=== PATIENT | female | born 1995 ===

== ENCOUNTER 2024-12-24 13:10 | Outpatient (BNV) | payer MEDICAID, SELFPAY | END 2024-12-26 08:00 | PROVIDERS: Admitting Provider Psychiatry & Neurology Psychiatry; Visit Provider Radiology Diagnostic Radiology | DX: M79.672 Pain in left foot (principal); S82.62XA Displaced fracture of lateral malleolus of left fibula, initial encounter for closed fracture | CPT/HCPCS: 73610; 73630 ==

== ENCOUNTER 2024-12-24 13:10 | Inpatient (IN) | payer MEDICAID, SELFPAY ==
--- NOTE | ~2024-12-24 | XR_ITS ---
EXAMINATION: XR FOOT, LEFT CLINICAL INFORMATION: left malleolus Fx, approx one month ago COMPARISON: Correlated to left ankle x-ray same day. TECHNIQUE: AP, lateral, and oblique views of the left foot. FINDINGS: The metatarsals are intact. The phalanges of the toes are intact. The calcaneus is intact. The tarsal bones are intact. Acute fracture distal metaphysis of the fibula with a small avulsion fracture fragment. XR/XR foot LT min 3V IMPRESSION: No acute fracture in the left foot. Acute fracture distal metaphysis of the right fibula with small avulsion fragment. Please refer to the ankle x-ray. Electronically signed by: Mike Senior MD 12/26/2024 09:08 AM ABHINAV MARROQUIN
--- NOTE | ~2024-12-24 | XR_ITS ---
EXAMINATION: XR ANKLE, LEFT CLINICAL INFORMATION: L lateral mal fx COMPARISON: None available. TECHNIQUE: AP, lateral, and mortise views of the left ankle. FINDINGS: There is a transversely oriented cortical disruption through the distal metaphysis of the fibula with small bone fragment in the soft tissues and a soft tissue contusion/edema, lateral malleolus. There is a 5 mm widening of the medial tibiotarsal joint space. Small volume anterior to the tarsal bursa joint effusion. XR/XR ankle LT min 3V IMPRESSION: Acute fracture distal metaphysis of the femur level with a lateral avulsion subluxation of the medial tibia tarsal joint. Electronically signed by: Mike Senior MD 12/26/2024 09:05 AM ABHINAV MARROQUIN
[2024-12-24 13:20] VITALS: BP 116/58; PULSE 90; RESP 18; TEMP 37.1; O2SAT 100
[2024-12-24 13:48] VITALS: BMI 32.5
--- OUTSIDE RECORDS SUMMARY | 2024-12-24 14:17 | XMS_ITS | Clinical Summary ---
Author Organization [facility] Address [address] [place] [address] Phone Care Team Providers Care [employer] Name Role Phone Physician, No Pcp Primary Care Provider Unavaila ble Allergies No known active allergies Medications melatonin 3 mg tablet 1 tablet (3 mg total). Active traZODone (DESYREL) 50 mg tabletIndicatio ns:insomnia associated with depression Take 1 tablet (50 mg total) by mouth at bedtime. Active hydrOXYzine HCL (ATARAX) 50 mg tablet Take 1 tablet (50 mg total) by mouth every 4 (four) hours if needed for anxiety. Active LORazepam (ATIVAN) 0.5 mg tablet Take 1 tablet (0.5 mg total) by mouth every 6 (six) hours if needed for anxiety. Max Daily Amount: 2 mg Active prazosin (MINIPRESS) 1 mg capsule Take 1 capsule (1 mg total) by mouth at bedtime. Active acetaminophen (TYLENOL) 500 mg tablet Take 1 tablet (500 mg total) by mouth every 6 (six) hours if needed for mild pain. Active ibuprofen (ADVIL,MOTRIN) 200 mg tablet Take 1 tablet (200 mg total) by mouth every 6 (six) hours if needed for mild pain. Active FLUoxetine (PROzac) 10 mg capsule Take 3 capsules (30 mg total) by mouth 1 (one) time each day. Active ARIPiprazole (ABILIFY) 2 mg tablet Take 1 tablet (2 mg total) by mouth at bedtime. 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) Discharge Disposition: Another Health Care Institution Not Defined from Last 3 Months Medical History Medical History Date Comments PTSD (post-traumatic stress disorder) per emr 08/2024 Pulmonary embolism ([facility]) per EMR, hypercoagulable, control use, no longer on eliquis per EMR DVT (deep venous thrombosis) ([facility]) per EMR Anxiety per EMR Depression per EMR Social History Tobacco Use Types Packs/Day Years Used Date Smoking Tobacco: Every Day Cigarettes Smokeless Tobacco: Never Tobacco Cessation:Ready to Q uit: Not Asked; Counseling Given: Not Answered Comments Unknown Sex and Gender Information Value Date Recorded Sex Assigned at Female 12/19/2024 12:44 PM EST Legal Sex Female 11:46 AM EST Gender Identity Female 12/19/2024 12:44 PM EST Sexual Orientation Not on file Obstetrics History Last Filed Vital Signs Vital Sign Reading Time Taken Comments Blood Pressure 114/69 12/24/2024 6:52 AM EST Pulse 88 12/24/2024 6:52 AM EST Temperature 37 ??C (98.6 ??F) 12/24/2024 6:52 AM EST Respiratory Rate 17 12/24/2024 6:52 AM EST Oxygen Saturation 98% 12/24/2024 6:52 AM EST Inhaled Oxygen Concentration - - Weight 113 kg (250 lb) 12/19/2024 5:52 PM EST Height 175.3 cm (5' 9 ) 12/19/2024 5:52 PM EST Body Mass Index 36.92 12/19/2024 5:52 PM EST Plan of Treatment Health Maintenance Due Date Last Done Comments DTaP,Tdap,and Td Vaccines (4 - Td or Tdap) 2003 02/22/2017, 08/03/2007, 06/26/2000, Additional history exists Pneumococcal Vaccine: Pediatrics (0 to 5 Years) and At-Risk Patients (6 to 64 Years) (1 of 2 - PCV) 2015 COVID-19 Vaccine ( season) 2024 Influenza Vaccine (#1) 2024 , 08/21/2019, 08/22/2018, Additional history exists Cervical Cancer Screening: Pap Smear 10/28/2024 10/28/2021 Cholesterol Screening (Lipid Panel) 12/19/2024 Depression Screening 12/19/2024 HIV Screening 12/19/2024 Hepatitis C Screening 12/19/2024 Social Influencers of Health Screening 12/19/2024 HIB Vaccines Completed 10/06/1997, /0 03/1997, 1996, Additional history exists Hepatitis A Vaccines Completed 06/26/2000, 10/11/19 99 IPV Vaccines Completed 06/26/2000, 09/14, 1996, Additional history exists MMR Vaccines Completed 06/26/2000, 1996 Hepatitis B Vaccines Completed 08/09/2000, 03/31/2000, 10/11/1999 Meningococcal ACWY Vaccine Completed 10/21/2013, HPV Vaccines Completed 08/04/2015, 03/13, 01/21/2015 Meningococcal B Vacine Aged Out No lo nger eligible based on patient's age to complete this topic RSV Immunization Patients Under 20 months Aged Out No longer eligible based on patient's age to complete this topic Varicella Vaccines Aged Out No longer eligible based on patient's age to complete this topic Procedures Procedure Name Priority Date/Time Associated Diagnosis Comments POC , URINE DIAGNOSTIC STAT 12/19/2024 2:54 PM EST METHADONE SCREEN, URINE STAT 12/19/2024 2:44 PM EST PHENCYCLIDINE, URINE STAT 12/19/2024 2:44 PM EST BUPRENORPHINE SCREEN, URINE STAT 12/19/2024 2:44 PM EST DRUG ABUSE SCREEN 8A PANEL, URINE STAT 12/19/2024 2:44 PM EST XR FOOT 3+ VIEWS LEFT STAT 12/19/2024 1:32 PM EST XR ANKLE 3+ VIEWS LEFT STAT 5 1:32 PM EST from Last 3 Months Results * POC , urine manually resulted (12/19/2024 2:54 PM EST) HCG, Ur POC Negative Negative POC hCG Int QC Pass? Yes Yes Urine Urine specimen obtained by clean catch procedure / Unknown 12/19/2024 2:54 PM EST Alessio Lyon DO POINT OF CARE TEST ENTER/EDIT ORDERABLES Final Result * (ABNORMAL) Drug abuse screen 8a panel, urine (12/19/2024 2:44 PM EST) Pathologist [facility] [place] Amphetamine Screen, Ur Negative Negative LAB CHEMISTRY METHOD 5 3:38 PM [facility] Comment:Certain OTC medicati ons containing ephedrine, phenylephrine, pseudoephedrine and phenylpropanolamine can cause false positive results. Barbiturate Screen, Ur Negative Negative LAB CHEMISTRY METHOD 5 3:38 PM [facility] Benzodiazepine Screen, Ur Negative Negative LAB CHEMISTRY METHOD 5 3:38 PM [facility] Cocaine Screen, Ur Negative Negative LAB CHEMISTRY METHOD 5 3:38 PM [facility] Opiate Screen, Ur Negative Negative LAB CHEMISTRY METHOD 5 3:38 PM [facility] Cannabinoid (THC) Screen, Ur Positive(A ) Negative LAB CHEMISTRY METHOD 5 3:38 PM [facility] Comment:Specimens from patie nts taking pantoprazole sodium (Protonix) have been shown to produce false positive results. Oxycodone Screen, Ur Negative Negative LAB CHEMISTRY METHOD 5 3:38 PM [facility] Fentanyl, Ur Negative Negative LAB CHEMISTRY METHOD 5 3:38 PM [facility] Urine Urine specimen obtained by clean catch procedure / Unknown Non-blood Collection / Unknown 12/19/2024 2:44 PM EST 12/19/2024 3:05 PM EST Narrative [facility] - 12/19/2024 3:38 PM EST Assay cutoffs: Amphetamines ? 1000 ng/mL Barbiturates ?200 ng/mL Benzodiazepines ?? 200 ng/mL Cocaine ? 300 ng/mL Fentanyl ?1 ng/mL Opiates ? 300 ng/mL Oxycodone ? 100 ng/mL THC ?50 ng/mL Semi-quantitative assay for screening purposes only. Unconfirmed screening result should not be used for non-medical purposes. *ALTERNATE METHOD CONFIRMATION DONE UPON REQUEST ONLY* Alessio Lyon DO LAB URINE ORDERABLES Final Res ult Performing Organization Address [facility] de Phone Number [facility] [address] [place] [address], [place] [phone] * Buprenorphine screen, urine (12/19/2024 2:44 PM EST) Pathologist [facility] [place] Buprenorphine Screen Urine Negative Negative LAB CHEMISTRY METHOD 12/19/2024 3:38 PM EST [facility] Urine Urine specimen obtained by clean catch procedure / Unknown Non-blood Collection / Unknown 12/19/2024 2:44 PM EST 12/19/2024 3:05 PM EST Narrative [facility] - 12/19/2024 3:38 PM EST Assay cutoff 5 ng/mL Semi-quantitative assay for screening purposes only. Unconfirmed screening result should not be used for non-medical purposes. *ALTERNATE METHOD CONFIRMATION DONE UPON REQUEST ONLY* Alessio Lyon DO LAB URINE ORDERABLES Final Res ult Performing Organization Address [facility] Co de Phone Number [facility] [address] [place] [address], [place] [phone] * Methadone, urine (12/19/2024 2:44 PM EST) Methadone Screen, Urine Negative Negative LAB CHEMISTRY METHOD 12/19/2024 3:38 PM EST [facility] Comment: Assay cutoff 300 ng/mL Semi-quantitative assay for screening purposes only. Unconfirmed screening result should not be used for non-medical purposes. *ALTERNATE METHOD CONFIRMATION DONE UPON REQUEST ONLY* Urine Urine specimen obtained by clean catch procedure / Unknown Non-blood Collection / Unknown 12/19/2024 2:44 PM EST 12/19/2024 3:05 PM EST us Alessio Lyon DO LAB URINE ORDERABLES Final Res ult Performing Organization Address [facility]/ZIP Co de Phone Number [facility] [address] [place] [address], [place] [phone] * Phencyclidine, urine (12/19/2024 2:44 PM EST) PCP Scrn, Ur Negative Negative LAB CHEMISTRY METHOD 12/19/2024 3:44 PM EST [facility] Comment: Assay cutoff 25 ng/mL Semi-quantitative assay for screening purposes only. Unconfirmed screening result should not be used for non-medical purposes. *ALTERNATE METHOD CONFIRMATION DONE UPON REQUEST ONLY* Urine Urine specimen obtained by clean catch procedure / Unknown Non-blood Collection / Unknown 12/19/2024 2:44 PM EST 12/19/2024 3:05 PM EST us Alessio Lyon DO LAB URINE ORDERABLES Final Res ult Performing Organization Address [facility]/ZIP Co de Phone Number [facility] [address] [place] [address], [place] [phone] * XR Foot 3+ Views Left (12/19/2024 1:32 PM EST) Anatomical Region Laterality Modality Lower Extremities, Foot Left Radiogra phic Imaging 12/19/2024 1:57 PM EST Impressions 12/19/2024 1:58 PM EST FINDINGS/IMPRESSION: No foot fracture. ??Normal alignment. ??Distal fibular fracture better visualized on the accompanying ankle films. -------- FINAL REPORT -------- Dictated By: Nina Luis Dictated Date: 12/19/2024 13:57 ET Assigned Physician: Nina Luis Reviewed and Electronically Signed By: Nina Luis Signed Date: 12/19/2024 13:58 ET Workstation ID: [id number] Transcribed By: Self Edit Transcribed Date: 12/19/2024 13:57 ET Narrative 12/19/2024 1:58 PM EST XR FOOT 3+ VIEWS LEFT INDICATION: trauma, pain TECHNIQUE: XR FOOT 3+ VIEWS LEFT COMPARISON: No priors available. Procedure Note Nina Luis MD - 12/19/2024 XR FOOT 3+ VIEWS LEFT INDICATION: trauma, pain TECHNIQUE: XR FOOT 3+ VIEWS LEFT COMPARISON: No priors available. IMPRESSION: FINDINGS/IMPRESSION: No foot fracture. Normal alignment. Distal fibularfracture better visualized on the accompanying ankle films. -------- FINAL REPORT -------- Dictated By: Nina Luis Dictated Date: 12/19/2024 13:57 ET Assigned Physician: Nina Luis Reviewed and Electronically Signed By: Nina Luis Signed Date: 12/19/2024 13:58 ET Workstation ID: [id number] Transcribed By: Self Edit Transcribed Date: 12/19/2024 13:57 ET us Alessio Lyon DO IMG XR PROCEDURES Final Result * XR Ankle 3+ Views Left (12/19/2024 1:32 PM EST) Anatomical Region Laterality Modality Lower Extremities, Ankle Left Radiogr aphic Imaging 12/19/2024 1:55 PM EST Impressions 12/19/2024 1:57 PM EST FINDINGS/IMPRESSION: There is an incompletely healed transverse fracture through the lateral malleolus with small adjacent fracture fragment. ??No significant displacement of the large fracture fragment. ??Prominent soft tissue swelling. -------- FINAL REPORT -------- Dictated By: Nina Luis Dictated Date: 12/19/2024 13:55 ET Assigned Physician: Nina Luis Reviewed and Electronically Signed By: Nina Luis Signed Date: 12/19/2024 13:57 ET Workstation ID: [id number] Transcribed By: Self Edit Transcribed Date: 12/19/2024 13:55 ET Narrative 12/19/2024 1:57 PM EST XR ANKLE 3+ VIEWS LEFT INDICATION: Injury of muscle and tendon at ankle and foot level TECHNIQUE: XR ANKLE 3+ VIEWS LEFT COMPARISON: No priors available. Procedure Note Nina Luis MD - 12/19/2024 XR ANKLE 3+ VIEWS LEFT INDICATION: Injury of muscle and tendon at ankle and foot level TECHNIQUE: XR ANKLE 3+ VIEWS LEFT COMPARISON: No priors available. IMPRESSION: FINDINGS/IMPRESSION: There is an incompletely healed transverse fracturethrough the lateral malleolus with small adjacent fracture fragment. Nosignificant displacement of the large fracture fragment. Prominent softtissue swelling. -------- FINAL REPORT -------- Dictated By: Nina Luis Dictated Date: 12/19/2024 13:55 ET Assigned Physician: Nina Luis Reviewed and Electronically Signed By: Nina Luis Signed Date: 12/19/2024 13:57 ET Workstation ID: [id number] Transcribed By: Self Edit Transcribed Date: 12/19/2024 13:55 ET Alessio Lyon DO IMG XR PROCEDURES Final Result from Last 3 Months Insurance MEDICAID - [place] Care Teams [employer] Relationship Specialty Start Date End Date Physician, No Pcp PCP - General 12/19/24
--- OUTSIDE RECORDS SUMMARY | 2024-12-24 14:18 | XMS_ITS | Encounter Summary ---
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 Name Role Phone Physician, No Pcp Primary Care Provider Unavaila ble Reason for Visit * Reason Comments Leg Pain Encounter Details Date Type Department Care Team (Late st Contact Info) Description 12/19/2024 11:48 AM EST - 12/24/2024 12:50 PM EST [facility] [address] [place] [id number] Alessio Lyon, DO [address] [place] [address] Loni Bustamante MD [address] [place] [address] Isiah Licea MD [address] [address] Sugar Washburn, DO [address] [place] [address] Turner Simms MD [address] [place] [address] Derrick Martini MD [address] [place] [id number] Mohan Herring MD [address] [place] [address] Chuck York, DO [address] [place] [address] Atypical psychosis (CMS/HCC) (Primary Dx) Discharge Disposition: Another Health Care Institution Not Defined Social History Tobacco Use Types Packs/Day Years Used Date Smoking Tobacco: Every Day Cigarettes Smokeless Tobacco: Never Tobacco Cessation:Ready to Q uit: Not Asked; Counseling Given: Not Answered Comments Unknown Sex and Gender Information Value Date Recorded Sex Assigned at Female 12/19/2024 12:44 PM EST Legal Sex Female 11:46 AM EST Gender Identity Female 12/19/2024 12:44 PM EST Sexual Orientation Not on file documented as of this encounter Last Filed Vital Signs Vital Sign Reading [...] Mass Index 36.92 12/19/2024 5:52 PM EST documented in this encounter Functional Status * Are you deaf or do you have serious difficulty hearing? Answer Date of Assessment Author No 12/20/2024 4:24 AM EST Tunde Calderon RN * Are you blind or do you have serious difficulty seeing, even when wearing glasses? Answer Date of Assessment Author No 12/20/2024 4:24 AM Tunde Caputo RN * Do you have serious difficulty walking or climbing stairs? Answer Date of Assessment Author Yes 12/20/2024 4:24 AM Tunde Caputo RN * Do you have serious difficulty dressing or bathing? Answer Date of Assessment Author No 12/20/2024 4:24 AM Tunde Caputo RN * Because of a physical, mental, or emotional condition, do you have serious difficulty doing errandsalone such as visiting the doctor? Answer Date of Assessment Author Yes 12/20/2024 4:24 AM Tunde Caputo RN documented as of this encounter Mental Status * Because of a physical, mental, or emotional condition, do you have serious difficulty concentrating, remembering, or making decisions? (5 years old or older) Answer Entry Date Author Yes 12/20/2024 4:24 AM Tunde Caputo RN documented in this encounter Medications at Time of Discharge acetaminophen (TYLENOL) 500 mg tablet Take 1 tablet (500 mg total) by mouth every 6 (six) hours if needed for mild pain. ARIPiprazole (ABILIFY) 2 mg tablet Take 1 tablet (2 mg total) by mouth at bedtime. FLUoxetine (PROzac) 10 mg capsule Take 3 capsules (30 mg total) by mouth 1 (one) time each day. hydrOXYzine HCL (ATARAX) 50 mg tablet Take 1 tablet (50 mg total) by mouth every 4 (four) hours if needed for anxiety. ibuprofen (ADVIL,MOTRIN) 200 mg tablet Take 1 tablet (200 mg total) by mouth every 6 (six) hours if needed for mild pain. LORazepam (ATIVAN) 0.5 mg tablet Take 1 tablet (0.5 mg total) by mouth every 6 (six) hours if needed for anxiety. Max Daily Amount: 2 mg melatonin 3 mg tablet 1 tablet (3 mg total). prazosin (MINIPRESS) 1 mg capsule Take 1 capsule (1 mg total) by mouth at bedtime. traZODone (DESYREL) 50 mg tabletIndications :insomnia associated with depression Take 1 tablet (50 mg total) by mouth at bedtime. documented as of this encounter Discharge Disposition Disposition Code Departure Means Destination Comment s Another Health Care Institution Not Defined documented in this encounter Progress Notes * Berenice Gilman - 12/24/2024 10:11 AM EST Patient accepted to [facility], unit M3 by Dr Abundio Patricio, for today 12/24/24. Time will be determined during nurse to nurse. * Chuck York DO - 12/24/2024 7:49 AM EST ED Course as of 12/24/24 1236 Irina Dec 19, 2024 1509 Patient was found to have a partially healed left lateral malleolus fracture. Of note, patientreports that this injury happened approximately a month ago, and the patient has been walking on the left leg since the initial injury. No reported new acute injury. The left lower extremity is neurov ascularly intact. Given that the patient is an acute psychiatric patient is well, we will attempt to place an air cast on the left ankle as a temporary measure until she can be cleared by crisis. [KN] 1739 The patient was seen and evaluated by the crisis team who recommended that the patient go in for inpatient psychiatric care. The patient will continue to be observed in the ED until she has a psychiatric bed. Patient will be signed out to the nighttime provider this evening as a bed search. [KN] Fri Dec 20, 2024 0810 Patient seen on change of shift no acute issues this a.m. awaiting bed search [JL] 1518 Patient signed out to me pending bed search. [TC] 2220 Patient be signed out to oncoming provider pending placement and bed search. [TC] Sat Dec 21, 2024 1520 Pending bed search at this time [TC] 2318 Patient signed out to oncoming provider pending bed search. [TC] Sun Dec 22, 2024 0823 Received patient's signout pending bed search. She is asking for a ankle splint. [JL] 2336 Patient was in the corner of the room. Unable to see patient on camera. Attempted to redirect patient verbally. Patient became agitated. Patient was then given Haldol and Ativan IM. Patient was straining. Restraint was discontinued upon my evaluation. Patient appears to be calm and cooperative at this time. [TC] 2337 She is signed out to oncoming provider pending placement at this time. [TC] Mon Dec 23, 2024 0818 I received signout on this patient at change of shift and have assumed care. Patient is currently a bed search for . [TC-2] Tue Dec 24, 2024 0748 Received patient end of shift transfer care Housing insecurity Manic behavior, flight of ideas/word salad, evaluated by psych-bed search Fall months ago has been walking on left ankle fracture-Aircast applied [MC] 1236 Inpatient bed at [facility] [MC] ED Course User Index [JL] Isiah Licea MD [KN] Alessio Lyon DO [] Chuck York DO [TC] Franciscorhianna Polanco Mikey Washburn DO [TC-2] Mohan Herring MD Clinical Impressions as of 12/24/24 1236 Atypical psychosis (CMS/HCC) Transfer to Another Facility 1. Atypical psychosis (CMS/HCC) Procedures * Latasha Bryan RN - 12/22/2024 4:15 PM EST This RN took over care of the patient at 1500. Pt was pacing and agitated. Pt was in her room yelling at stimuli that were not present. Pt continued to make erratic hand gestures and to move the blanket, pillow and book around the room. Pt laid down on the floor in the corner of the room on the farside of the bed. Pt continued to make hand movement that this RN could not see. Lights in the room were turned on to better visualize patient movement, but still could not observe the patients face or hands from her position supine in the corner. I stepped into the room to try to ask the patient tomove onto her bed. The patient responded with you can go fuck yourself, I'm tired of the lies and games . This RN attempted to deescalate the patient for 15 minutes. The patient was offered books, television, food and drink and PRN medications is she would got onto the bed in order for staff to visualize her for her own safety. Pt continued to state, fuck you, you can get the fuck out . Provider made aware of patient behavior and safety risk of not being able to visualize patient movements. Pr ovider also aware of RN attempts to deescalate pt. Provider, MARCY Charles and security to bedside. Pt asked again to get onto the bed. Pt replied I should kill all of you and damn your souls . Pt administered 5mg Haldol, and 2 mg ativan IM and placed in four point restraints. Restraints were locked and checked for tightness. Latasha Bryan RN 12/22/24 1471 * Sugar Washburn DO - 12/22/2024 3:08 PM EST ED Course as of 12/22/24 2337 Irina Dec 19, 2024 1509 Patient was found to have a partially healed left lateral malleolus fracture. Of note, patientreports that this injury happened approximately a month ago, and the patient has been walking on the left leg since the initial injury. No reported new acute injury. The left lower extremity is neurov ascularly intact. Given that the patient is an acute psychiatric patient is well, we will attempt to place an air cast on the left ankle as a temporary measure until she can be cleared by crisis. [KN] 1739 The patient was seen and evaluated by the crisis team who recommended that the patient go in for inpatient psychiatric care. The patient will continue to be observed in the ED until she has a psychiatric bed. Patient will be signed out to the nighttime provider this evening as a bed search. [KN] Fri Dec 20, 2024 0810 Patient seen on change of shift no acute issues this a.m. awaiting bed search [JL] 1518 Patient signed out to me pending bed search. [TC] 2220 Patient be signed out to oncoming provider pending placement and bed search. [TC] Salvador Dec 21, 2024 1520 Pending bed search at this time [TC] 2318 Patient signed out to oncoming provider pending bed search. [TC] Farnaz Dec 22, 2024 0823 Received patient's signout pending bed search. She is asking for a ankle splint. [JL] 2336 Patient was in the corner of the room. Unable to see patient on camera. Attempted to redirect patient verbally. Patient became agitated. Patient was then given Haldol and Ativan IM. Patient was straining. Restraint was discontinued upon my evaluation. Patient appears to be calm and cooperative at this time. [TC] 2337 She is signed out to oncoming provider pending placement at this time. [TC] ED Course User Index [JL] Isiah Licea MD [KN] Alessio Lyon DO [TC] Sugar Washburn DO Clinical Impressions as of 12/22/24 2337 Atypical psychosis (CMS/HCC) Data Unavailable 1. Atypical psychosis (CMS/HCC) Procedures Ivy Lira * Mckenzie Berman RN - 12/22/2024 2:54 PM EST Pt continues to refuse vitals, telling RN to come back later . Pt sitting in bed making hand gestures, seems to be engaging in conversation or speaking to herself. At one point, pt yelled out aggressively and began crying. Now calm, but continues to speak to self. * Uma Lincoln NP - 12/22/2024 1:57 PM EST Psychiatry Initial Intake Ivy is a 29-year-old female reportedly [facility] complaining of bruising and pain in her right ankle and left foot and tailbone area after she reportedly had a fall about a month ago. She has been walking on the injured left extremity. Is some noted bruising and swelling to the left foot and ankle. No knee pain or fibular head tenderness. No hip pain or tenderness with range of motion. No other gross deformities. No head trauma or neck pain, neck stiffness or focal numbness or weakness. No trauma or injury reported. In addition, patient appears to have some paranoia and flight of ideas during my interview and exam, and ismixing multiple topics while trying to give a history. She does reportedly use marijuana and there is a possible history of opiate abuse in the past. She denies IVDU. There have been no reported fevers or recent illness. She denies any SI or HI. She denies any attempt to hurt herself. She does report that she is hearing voices, but would not specify what they are saying. No other acute complaints. On arrival Ivy reported there is a restraining order and check the court documents . She stated I am but it is complicated cause which and are you talking . She reported I every time I go to sleep . She reported sleep is no neccessary for me . She reported I cannot be in a high population area . Per EHR on 12/22/2024 Ivy's boyfriend stated he met her on tender in 10/06 and she was going through a divorce . He stated she was off her medications and she became very disorganized. 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 Her boyfriend stated she is from [place] and was living in [place] with her and daughter until thier divorce. He reported she went missing and he was looking for her for 2 days. He stated she had bought a plane ticket to [place]. He reported they noticed she was decompensated and sent her to [facility] for treatment. Her boyfriend stated when she got out she was still very decompensated. He reported she could not care for herself she was so decompensated. He stated he had to feed her. Her boyfriend stated she got aggressive with him and wasspiting at him. He reported he had to call the police and they sent her to the ER. Subjective 12/22/2024 I will look at you and fire you from here HPI: Ms Kathrine Lira sitting on bed eating lunch. Able to make needs known to staff. Showered yesterday. Current Medications: Scheduled Meds: nicotine, 1 patch, transdermal, Daily Continuous Infusions: PRN Meds: PRN medications: ibuprofen Psychiatric Review Of Systems: Sleep: sleeping at night Appetite changes: eating meals Weight changes: unknown Energy: no Anxiety/panic: no Guilty/hopeless: no Self-injurious behavior/risky behavior: yes Any drugs: yes, cannabis Alcohol: unknown Mental Status Exam: General Observations Appearance and Build: age appropriate, tattooed, and average build Demeanor: Hostile, Mistrustful, and uncooperative at imes Eye Contact: Average Activity: Average Speech: pressured and profane Behavior: resistant Mood: angry and labile Affect: labile Thought Process: disorganized, loose associations, and poor concentration Thought Content: Delusions: church Other: guarded Self Abuse: none reported Aggressive: none reported Cognition: Impairment of: attention/concentration and ability to abstract Intelligence Estimate: average Sensorium/Orientation: person Perception: Hallucinations: none reported Other: none reported Insight/Judgment: impaired due to disorganized and paranoid thoughts Elaboration of Positive Mental Status Findings: Ms Kathrine Lira mostly cooperative with staff. Denies thoughts of harming herself. Speech loud, pressured, content disorganized, nonsensical at times Physical/Somatic Complaints The patient lists: pain in leg Blood pressure 117/81, pulse 75, temperature 36.7 ??C (98 ??F), temperature source Oral, resp. rate16, height 1.753 m (69 ), weight 113 kg (250 lb), SpO2 99%. Lab Results: Results for orders placed or performed during the hospital encounter of 12/19/24 Drug abuse screen 8a panel, urine Collection Time: 12/19/24 2:44 PM Result Value Ref Range Amphetamine Screen, Ur Negative Negative Barbiturate Screen, Ur Negative Negative Benzodiazepine Screen, Ur Negative Negative Cocaine Screen, Ur Negative Negative Opiate Screen, Ur Negative Negative Cannabinoid (THC) Screen, Ur Positive (A) Negative Oxycodone Screen, Ur Negative Negative Fentanyl, Ur Negative Negative Buprenorphine screen, urine Collection Time: 12/19/24 2:44 PM Result Value Ref Range Buprenorphine Screen Urine Negative Negative Phencyclidine, urine Collection Time: 12/19/24 2:44 PM Result Value Ref Range PCP Scrn, Ur Negative Negative Methadone, urine Collection Time: 12/19/24 2:44 PM Result Value Ref Range Methadone Screen, Urine Negative Negative POC , urine manually resulted Collection Time: 12/19/24 2:54 PM Result Value Ref Range HCG, Ur POC Negative Negative POC hCG Int QC Pass? Yes Yes Medications: Current Facility-Administered Medications Medication Dose Route Frequency Provider Last Rate Last Admin ibuprofen (ADVIL,MOTRIN) tablet 600 mg 600 mg oral q6h PRN Isiah Licea MD 600 mg at 133 nicotine (NICODERM CQ) 14 mg/24 hr patch 1 patch 1 patch transdermal Daily Sugar Washburn, DO 1 patch at 12/22/24 0939 Current Outpatient Medications Medication Sig Dispense Refill acetaminophen (TYLENOL) 500 mg tablet Take 1 tablet (500 mg total) by mouth every 6 (six) hours if needed for mild pain. ARIPiprazole (ABILIFY) 2 mg tablet Take 1 tablet (2 mg total) by mouth at bedtime. FLUoxetine (PROzac) 10 mg capsule Take 3 capsules (30 mg total) by mouth 1 (one) time each day. hydrOXYzine HCL (ATARAX) 50 mg tablet Take 1 tablet (50 mg total) by mouth every 4 (four) hours if needed for anxiety. ibuprofen (ADVIL,MOTRIN) 200 mg tablet Take 1 tablet (200 mg total) by mouth every 6 (six) hours ifneeded for mild pain. LORazepam (ATIVAN) 0.5 mg tablet Take 1 tablet (0.5 mg total) by mouth every 6 (six) hours if needed for anxiety. Max Daily Amount: 2 mg melatonin 3 mg tablet 1 tablet (3 mg total). prazosin (MINIPRESS) 1 mg capsule Take 1 capsule (1 mg total) by mouth at bedtime. traZODone (DESYREL) 50 mg tablet Take 1 tablet (50 mg total) by mouth at bedtime. Diagnosis/Assessment/Plan: Psychotic disorder, unspecified Recommendations 1) Will add olanzapine 5 mg BID prn agitation/ anxiety. Currently Ms Kathrine Lira is refusing medications . Patient does not appear to be on a [place] Order and may do so. 2) Collaborate with team for inpatient psychiatric hospitalization for patient safety, mood stabilization and medication management. 2) Uma Lincoln NP * Mckenzie Berman RN - 12/22/2024 1:00 PM EST Pt refused vitals. Pt states no, please go away. * Isiah Licea MD - 12/22/2024 8:22 AM EST ED Course as of 12/22/24 1357 Irina Dec 19, 2024 1504 Patient was found to have a partially healed left lateral malleolus fracture. Of note, patientreports that this injury happened approximately a month ago, and the patient has been walking on the left leg since the initial injury. No reported new acute injury. The left lower extremity is neurov ascularly intact. Given that the patient is an acute psychiatric patient is well, we will attempt to place an air cast on the left ankle as a temporary measure until she can be cleared by crisis. [KN] 1732 The patient was seen and evaluated by the crisis team who recommended that the patient go in for inpatient psychiatric care. The patient will continue to be observed in the ED until she has a psychiatric bed. Patient will be signed out to the nighttime provider this evening as a bed search. [KN] MonDec 20, 2024 0810 Patient seen on change of shift no acute issues this a.m. awaiting bed search [JL] 1518 Patient signed out to oh pending bed search. [TC] 2220 Patient be signed out to oncoming provider pending placement and bed search. [TC] Sat Dec 21, 2024 1520 Pending bed search at this time [TC] 2318 Patient signed out to oncoming provider pending bed search. [TC] Sun Dec 22, 2024 0823 Received patient's signout pending bed search. She is asking for a ankle splint. [JL] ED Course User Index [JL] Isiah Licea MD [KN] Alessio Lyon DO [TC] Sugar Washburn DO Clinical Impressions as of 12/22/24 1357 Atypical psychosis (CMS/HCC) Data Unavailable 1. Atypical psychosis (CMS/HCC) Procedures * Sugar Washburn DO - 12/21/2024 3:20 PM EST ED Course as of 12/22/24 2337 Irina Dec 19, 2024 1509 Patient was found to have a partially healed left lateral malleolus fracture. Of note, patientreports that this injury happened approximately a month ago, and the patient has been walking on the left leg since the initial injury. No reported new acute injury. The left lower extremity is neurov ascularly intact. Given that the patient is an acute psychiatric patient is well, we will attempt to place an air cast on the left ankle as a temporary measure until she can be cleared by crisis. [KN] 1739 The patient was seen and evaluated by the crisis team who recommended that the patient go in for inpatient psychiatric care. The patient will continue to be observed in the ED until she has a psychiatric bed. Patient will be signed out to the nighttime provider this evening as a bed search. [KN] MonDec 20, 2024 0810 Patient seen on change of shift no acute issues this a.m. awaiting bed search [JL] 1518 Patient signed out to me pending bed search. [TC] 2220 Patient be signed out to oncoming provider pending placement and bed search. [TC] Sat Dec 21, 2024 1520 Pending bed search at this time [TC] 2318 Patient signed out to oncoming provider pending bed search. [TC] Sun Dec 22, 2024 0823 Received patient's signout pending bed search. She is asking for a ankle splint. [JL] 2336 Patient was in the corner of the room. Unable to see patient on camera. Attempted to redirect patient verbally. Patient became agitated. Patient was then given Haldol and Ativan IM. Patient was straining. Restraint was discontinued upon my evaluation. Patient appears to be calm and cooperative at this time. [TC] 2337 She is signed out to oncoming provider pending placement at this time. [TC] ED Course User Index [JL] Isiah Licea MD [KN] Alessio Lyon DO [TC] Sugar Washburn DO Clinical Impressions as of 12/22/247 Atypical psychosis (CMS/HCC) Data Unavailable 1. Atypical psychosis (CMS/HCC) Procedures Ivy Lira * Teofilo Jalloh RN - 12/21/2024 1:55 PM EST Patient out the shower returned to room and is resting comfortably in bed. * Teofilo Jalloh RN - 12/21/2024 1:34 PM EST Patient is currently taking a shower. * Teofilo Jalloh RN - 12/21/2024 11:39 AM EST Patient seen laying on the floor crying. Patient states she is laying on the floor because she is in pain . When asked where her pain was and if she would like something to help the pain - patient said no leave me alone * Teofiol Jalloh RN - 12/21/2024 9:53 AM EST This RN entered patient room to check vitals - patient refused and states F off I'm busy . Patient is currently sitting on the side of the bed stroking her hair. * Turner Simms MD - 12/21/2024 7:18 AM EST ED Course as of 12/21/24 1536 Irina Dec 19, 2024 1509 Patient was found to have a partially healed left lateral malleolus fracture. Of note, patientreports that this injury happened approximately a month ago, and the patient has been walking on the left leg since the initial injury. No reported new acute injury. The left lower extremity is neurov ascularly intact. Given that the patient is an acute psychiatric patient is well, we will attempt to place an air cast on the left ankle as a temporary measure until she can be cleared by crisis. [KN] 1739 The patient was seen and evaluated by the crisis team who recommended that the patient go in for inpatient psychiatric care. The patient will continue to be observed in the ED until she has a psychiatric bed. Patient will be signed out to the nighttime provider this evening as a bed search. [KN] Fri Dec 20, 2024 0810 Patient seen on change of shift no acute issues this a.m. awaiting bed search [JL] 1518 Patient signed out to me pending bed search. [TC] 2220 Patient be signed out to oncoming provider pending placement and bed search. [TC] Sat Dec 21, 2024 1520 Pending bed search at this time [TC] ED Course User Index [JL] Isiah Licea MD [KN] Alessio Lyon DO [TC] Sugar Washburn DO Clinical Impressions as of 12/21/24 1536 Atypical psychosis (CMS/HCC) Data Unavailable 1. Atypical psychosis ([facility]) Procedures * Rosa Beyer RN - 12/21/2024 6:53 AM EST REPORT TO TEOFILO CHOW * Rosa Beyer RN - 12/21/2024 6:50 AM EST PT RESTING ,RR EVEN * Rosa Beyer RN - 12/21/2024 4:32 AM EST PT RESTING IN ROOM ,NAD, RR EVEN, REPOSITIONS INDEPENDENTLY * Rosa Beyer RN - 12/21/2024 3:07 AM EST PT RESTING, RR EVEN, NO DISTRESS NOTED * Rosa Beyer RN - 12/21/2024 1:51 AM EST PT REPOSITIONS INDEPENDENTLY, RR EVEN * Rosa Beyer RN - 12/20/2024 11:53 PM EST PT RESTING ON BED IN ROOM, RR EVEN, NO DISTRESS NOTED * Sugar Washburn DO - 12/20/2024 3:17 PM EST ED Course as of 12/22/24 2337 Irina Dec 19, 2024 1509 Patient was found to have a partially healed left lateral malleolus fracture. Of note, patientreports that this injury happened approximately a month ago, and the patient has been walking on the left leg since the initial injury. No reported new acute injury. The left lower extremity is neurov ascularly intact. Given that the patient is an acute psychiatric patient is well, we will attempt to place an air cast on the left ankle as a temporary measure until she can be cleared by crisis. [KN] 1739 The patient was seen and evaluated by the crisis team who recommended that the patient go in for inpatient psychiatric care. The patient will continue to be observed in the ED until she has a psychiatric bed. Patient will be signed out to the nighttime provider this evening as a bed search. [KN] Fri Dec 20, 2024 0810 Patient seen on change of shift no acute issues this a.m. awaiting bed search [JL] 1518 Patient signed out to me pending bed search. [TC] 2220 Patient be signed out to oncoming provider pending placement and bed search. [TC] Sat Dec 21, 2024 1520 Pending bed search at this time [TC] 2318 Patient signed out to oncoming provider pending bed search. [TC] Sun Dec 22, 2024 0823 Received patient's signout pending bed search. She is asking for a ankle splint. [JL] 2336 Patient was in the corner of the room. Unable to see patient on camera. Attempted to redirect patient verbally. Patient became agitated. Patient was then given Haldol and Ativan IM. Patient was straining. Restraint was discontinued upon my evaluation. Patient appears to be calm and cooperative at this time. [TC] 2337 She is signed out to oncoming provider pending placement at this time. [TC] ED Course User Index [JL] Isiah Licea MD [KN] Alessio Lyon DO [TC] Sugar Washburn DO Clinical Impressions as of 12/22/247 Atypical psychosis (CMS/HCC) Data Unavailable 1. Atypical psychosis (CMS/HCC) Procedures Ivy Lira * Beena Hardin RN - 12/20/2024 2:46 PM EST Pt continues with intermittent paranoid statements. I can't keep just admitting myself and discharging myself for the science of it . Pt began inspecting sink near her room, I stated that the water had been running ( automatic faucet) because I placed the meal tray on the counter, pt states So you could keep you job, that's one way to fuck it up . Pt speaking on phone to Luis ( [phone] ) and yelling at him. Demanding to have him come and get her, that she needs her history . She thenstates that she doesn't want to talk to him because she has a restraining order against him. Luis had identified himself as her boyfriend and pt stated she wants to speak with him when he called. She did not give permission for us to give him any information. Pt with very labile emotions over course of shift, crying, angry, then calm and cooperative and speaking with staff saying thank you. Anger brief periods lasting just a few min at a time. * Isiah Licea MD - 12/20/2024 8:09 AM EST ED Course as of 12/22/24 0823 [facility] Dec 19, 2024 1509 Patient was found to have a partially healed left lateral malleolus fracture. Of note, patientreports that this injury happened approximately a month ago, and the patient has been walking on the left leg since the initial injury. No reported new acute injury. The left lower extremity is neurov ascularly intact. Given that the patient is an acute psychiatric patient is well, we will attempt to place an air cast on the left ankle as a temporary measure until she can be cleared by crisis. [KN] 1805 The patient was seen and evaluated by the crisis team who recommended that the patient go in for inpatient psychiatric care. The patient will continue to be observed in the ED until she has a psychiatric bed. Patient will be signed out to the nighttime provider this evening as a bed search. [KN] Fri Dec 20, 2024 0810 Patient seen on change of shift no acute issues this a.m. awaiting bed search [JL] 1518 Patient signed out to me pending bed search. [TC] 2220 Patient be signed out to oncoming provider pending placement and bed search. [TC] Sat Dec 21, 2024 1520 Pending bed search at this time [TC] 2318 Patient signed out to oncoming provider pending bed search. [TC] Sun Dec 22, 2024 0823 Received patient's signout pending bed search. She is asking for a ankle splint. [JL] ED Course User Index [JL] Isiah Licea MD [KN] Alessio Lyon DO [TC] Sugar Washburn DO Clinical Impressions as of 12/22/24 08 Atypical psychosis (CMS/HCC) Data Unavailable 1. Atypical psychosis (CMS/HCC) Procedures * Saman Calderon RN - 12/20/2024 4:41 AM EST Researching patient's medical record for any psychiatric hx as very little is known about this patient who is presenting with psychosis and is now an In-pt bed search looking IPLOC. Called the [facility] located in [facility] where there is a [facility]. This typewriter operator automatic spoke with thenursing production support supervisor who told this typewriter operator automatic no one by the patient's name has ever been there, but a woman with the same date of by the name of Ivy Rodriguez was a patient there in the past. Further exploration shows the patient has other health records with the name Ivy Thurman. Hx of Anxiety, Depression - Insomnia - Unspecified mood disorder and has been treated with Abilify, Prozac, Ativan, Prazosin, Hydroxizine, Trazodone and melatonin. In addition to the psychiatric hx, the patient also has a hx of PE, DVT and Scoliosis. She is on no medications here in the ED and voices that she does not take or want medications at this time. * Hawa Cespedes RN - 12/19/2024 12:05 PM EST Pt refused ECG at this time. * Hawa Cespedes RN - 12/19/2024 11:50 AM EST Pt BIBA from the lobby of the police station with complaints of leg pain that originates from tailbone per patient. Pt reports possible hx of opiate abuse. * Isiah Licea MD - 12/19/2024 11:46 AM EST Emergency Medicine Note Patient Name: Ivy Lira Initial Evaluation: 12/19/2024 : 1995 Patient's PCP: No Pcp Physician Emergency Physician: Alessio Lyon DO History of Present Illness Chief Complaint: Chief Complaint Patient presents with ??? Leg Pain HPI: This 29-year-old female reportedly presents to the emergency department from the police station complaining of bruising and pain in her right ankle and left foot and tailbone area after she reportedly had a fall about a month ago. She has been walking on the injured left extremity. Is some noted bruising and swelling to the left foot and ankle. No knee pain or fibular head tenderness. No hippain or tenderness with range of motion. No other gross deformities. No head trauma or neck pain, neck stiffness or focal numbness or weakness. No trauma or injury reported. In addition, patient appears to have some paranoia and flight of ideas during my interview and exam, and is mixing multiple topics while trying to give a history. She does reportedly use marijuana and there is a possible history of opiate abuse in the past. She denies IVDU. There have been no reported fevers or recent illness. She denies any SI or HI. She denies any attempt to hurt herself. She does report that she is hearing voices, but would not specify what they are saying. No other acute complaints. ROS: I have performed a ROS with the pertinent positives and negatives documented in the history ofpresent illness. Previous History History reviewed. No pertinent past medical history. History reviewed. No pertinent surgical history. Social History Tobacco Use ??? Smoking status: Every Day Types: Cigarettes ??? Smokeless tobacco: Never No family history on file. has No Known Allergies. No current facility-administered medications on file prior to encounter. No current outpatient medications on file prior to encounter. Physical Exam ED Triage Vitals [12/19/24 1204] Temp Heart Rate Resp BP 36.6 ??C (97.9 ??F) 69 17 129/72 SpO2 Temp src Heart Rate Source Patient Position 100 % -- -- -- BP Location FiO2 (%) -- -- General: Patient is awake and alert, calm and cooperative, but appears to have flight of ideas withsome pressured speech. She is following commands appropriately. She is in no acute distress. Well-appearing, well nourished, in no acute distress Back: Positive sacral area paraspinal tenderness and spasm, no bony tenderness to palpation or percussion. No obvious step-off or back or sacral bruising. HEENT: No obvious gross acute head trauma, pink and moist mucosa Neck: Soft and supple Chest: Good good air entry bilaterally, no evidence of respiratory distress Circulatory: RRR Abdomen: Soft, non-distended, Non-Tender Extremities: Warm and well-perfused, neurovascular is grossly intact. Positive mild swelling and bruising to the left foot toes, left forefoot and left ankle. Good strong pulses and good cap refill to the left lower extremity. No gross signs of acute neurovascular compromise. Obvious gross signs ofacute infection to the left lower extremity. Skin: Warm and dry Neuro: Alert, calm, cooperative, no obvious gross acute focal deficits Psychiatric: Flight of ideas and pressured speech, no SI/HI, positive for auditory hallucinations Results Labs Reviewed DRUG ABUSE SCREEN 8A PANEL, URINE - Abnormal Result Value Amphetamine Screen, Ur Negative Barbiturate Screen, Ur Negative Benzodiazepine Screen, Ur Negative Cocaine Screen, Ur Negative Opiate Screen, Ur Negative Cannabinoid (THC) Screen, Ur Positive (*) Oxycodone Screen, Ur Negative Fentanyl, Ur Negative Narrative: Assay cutoffs: Amphetamines 1000 ng/mL Barbiturates 200 ng/mL Benzodiazepines 200 ng/mL Cocaine 300 ng/mL Fentanyl 1 ng/mL Opiates 300 ng/mL Oxycodone 100 ng/mL THC 50 ng/mL Semi-quantitative assay for screening purposes only. Unconfirmed screening result should not be used for non-medical purposes. *ALTERNATE METHOD CONFIRMATION DONE UPON REQUEST ONLY* BUPRENORPHINE SCREEN, URINE - Normal Buprenorphine Screen Urine Negative Narrative: Assay cutoff 5 ng/mL Semi-quantitative assay for screening purposes only. Unconfirmed screening result should not be used for non-medical purposes. *ALTERNATE METHOD CONFIRMATION DONE UPON REQUEST ONLY* PHENCYCLIDINE, URINE - Normal PCP Scrn, Ur Negative METHADONE SCREEN, URINE - Normal Methadone Screen, Urine Negative CBC AND DIFFERENTIAL Narrative: The following orders were created for panel order CBC and differential. Procedure Abnormality Status --------- ------ CBC auto differential[[id number]] Please view results for these tests on the individual orders. COMPREHENSIVE METABOLIC PANEL ETHANOL ACETAMINOPHEN LEVEL SALICYLATE LEVEL CBC WITH AUTO DIFFERENTIAL POC , URINE DIAGNOSTIC HCG, Ur POC Negative POC hCG Int QC Pass? Yes Abnormal Labs Reviewed DRUG ABUSE SCREEN 8A PANEL, URINE - Abnormal; Notable for the following components: Result Value Cannabinoid (THC) Screen, Ur Positive (*) All other components within normal limits Narrative: Assay cutoffs: Amphetamines 1000 ng/mL Barbiturates 200 ng/mL Benzodiazepines 200 ng/mL Cocaine 300 ng/mL Fentanyl 1 ng/mL Opiates 300 ng/mL Oxycodone 100 ng/mL THC 50 ng/mL Semi-quantitative assay for screening purposes only. Unconfirmed screening result should not be used for non-medical purposes. *ALTERNATE METHOD CONFIRMATION DONE UPON REQUEST ONLY* XR Ankle 3+ Views Left Final Result FINDINGS/IMPRESSION: There is an incompletely healed transverse fracture through the lateral malleolus with small adjacent fracture fragment. No significant displacement of the large fracture fragment. Prominent soft tissue swelling. -------- FINAL REPORT -------- Dictated By: Nina Luis Dictated Date: 12/19/2024 13:55 ET Assigned Physician: Nina Luis Reviewed and Electronically Signed By: iNna Luis Signed Date: 12/19/2024 13:57 ET Workstation ID: [id number] Transcribed By: Self Edit Transcribed Date: 12/19/2024 13:55 ET XR Foot 3+ Views Left Final Result FINDINGS/IMPRESSION: No foot fracture. Normal alignment. Distal fibular fracture better visualized on the accompanying ankle films. -------- FINAL REPORT -------- Dictated By: Nina Luis Dictated Date: 12/19/2024 13:57 ET Assigned Physician: Nina Luis Reviewed and Electronically Signed By: Nina Luis Signed Date: 12/19/2024 13:58 ET Workstation ID: [id number] Transcribed By: Self Edit Transcribed Date: 12/19/2024 13:57 ET XR Sacrum Coccyx 2+ Views (Results Pending) XR Lumbar Spine 2-3 Views (Results Pending) I have discussed the incidental/abnormal imaging and/or lab abnormalities with the patient and haveinstructed them the need for further evaluation and workup with their primary care doctor. The laboratory results, imaging results and other diagnostic exam results were reviewed in the EMR. EKG Interpretation Critical Care Time None Medical Decision Making Medications - No data to display ED Course as of 12/22/24 1406 Irina Dec 19, 2024 1509 Patient was found to have a partially healed left lateral malleolus fracture. Of note, patientreports that this injury happened approximately a month ago, and the patient has been walking on the left leg since the initial injury. No reported new acute injury. The left lower extremity is neurov ascularly intact. Given that the patient is an acute psychiatric patient is well, we will attempt to place an air cast on the left ankle as a temporary measure until she can be cleared by crisis. [KN] 1739 The patient was seen and evaluated by the crisis team who recommended that the patient go in for inpatient psychiatric care. The patient will continue to be observed in the ED until she has a psychiatric bed. Patient will be signed out to the nighttime provider this evening as a bed search. [KN] Fri Dec 20, 2024 0810 Patient seen on change of shift no acute issues this a.m. awaiting bed search [JL] 1518 Patient signed out to [place] pending bed search. [TC] 2220 Patient be signed out to oncoming provider pending placement and bed search. [TC] Sat Dec 21, 2024 1520 Pending bed search at this time [TC] 2318 Patient signed out to oncoming provider pending bed search. [TC] Sun Dec 22, 2024 0823 Received patient's signout pending bed search. She is asking for a ankle splint. [JL] ED Course User Index [JL] Isiah Licea MD [KN] Alessio Lyon DO [TC] Sugar Washburn DO Clinical Impressions as of 12/22/24 1406 Atypical psychosis (CMS/HCC) Procedures Procedures Diagnosis 1. Atypical psychosis (CMS/HCC) Disposition Data Unavailable ED Prescriptions None Physician Attestation Alessio Lyon, 12/19/24 1231 Alessio Lyon, DO 12/19/24 1302 Alessio Lyon, DO 12/19/24 1512 Alessiogus Lyon, DO 12/19/24 1618 Alessiogus Lyon, DO 12/19/24 1740 Isiah Licea MD 12/22/24 1406 documented in this encounter Consult Notes * Mark Beal - 12/23/2024 10:10 AM EST Images from the original note were not included. Behavioral Health Services - Mental Status Update Important times Time assessment started: 09:40 Time of disposition: 10:10 Location: Emergency Room (ER) Consulted case with: Yessenia Spring LCSW Reason for Consultation / Presenting Problem: Ivy Lira is being seen today for a 24 hour re-evaluation due to their state wide bed search being exhausted. Patient was calm, cooperative, and engaged in conversation with [facility]. She spoke about various topics, including being one month , having repeatedly given in the hospital and having her babies stolen, her missing tooth regenerating, having visions, and other delusions. She stated that she was feeling a little suicidal yesterday due to a panic attack but denied SI today. Patient reported that she has HI when others hurt her, specifically towards those who hurt her. She stated that along with her visions, she sees marcelino rgy, auras, and dimensions. Collaterals, contact information, and engagement level: Therapist: None reported Psychiatrist: None reported PCP: Unknown Family: Unkown Other: BoyfriendLuis: Mental Status Speech: WNL Eye Contact: WNL Motor Activity: Slowed Mood: Neutral and Pleasant Affect: Flat Sleep: WNL Appetite: Fair Memory: Moderate Impairment Attention / Concentration: Mild Impairment Behavior: Cooperative and Calm Hallucinations: Auditory and Visual Delusions: Scientologist Thought Content: Suspicious SI: Denied HI: Denied Thought Process: Flight of Ideas Orientation Impairment: Situation Insight: Poor Judgment: Poor Impulse Control: Poor Medications: Scheduled Meds: nicotine, 1 patch, transdermal, Daily Continuous Infusions: PRN Meds: PRN medications: ibuprofen, OLANZapine Risk Assessment: Self-Harm: None Suicidal Behavior: None Homicidal Behavior: None Physical Assault: None Physical Aggression: None Property Damage: None Verbal Aggression: None Family history of suicide: None reported Protective Factors: Patient has social support in boyfriend. Patient has stable housing. Patient isable to advocate for herself. Risk Factors: Patient does not have outpatient mental health support. Patient is very decompensated. Patient is not medication compliant. Suicide Risk: Based on patient's history and current presentation, their level of risk for intentional lethal harm is considered Low Interventions: Risk/crisis assessment, active listening, empathetic listening, support Response to interventions: Patient was cooperative, engaged, and aligned with speaking with S. DSM-5TR Diagnosis: F 29 Unspecified Schizophrenia Spectrum and other psychotic D/O Plan: Based on the information above, patient would continue to benefit from an involuntary inpatient psychiatric admission for safety and containment, mood stabilization, medication evaluation, diagnosticevaluation, and coordination with outpatient and community supports. Upon discharge, patient would benefit from developing a plan with support system to ensure medication compliance. Recommendations were discussed with requesting provider. It was a pleasure to assist Ivy Lira here at [facility]. This report is written and finalized by: Mark Beal Behavioral Health Specialist [facility] (Tel): [phone] / : [phone] * Rubia Roman - 12/22/2024 12:57 PM EST Images from the original note were not included. Behavioral Health Services - Mental Status Update Important times Time assessment started: 12/22/24 8:30 am Time of disposition: 12/22/24 9:00 am Location: [facility] Emergency Department Consulted case with: Camelia Dubon PsyD Reason for Consultation / Presenting Problem: Ivy Lira is being seen today for a 24 hour re-evaluation due to their state wide bed search being exhausted. Ivy was initially seen on 12/19/24 complaining of bruising and pain in her right ankle and left foot and tailbone area after she reportedly had a fall about a month ago. She has been walking on the injured left extremity. Is somenoted bruising and swelling to the left foot and ankle. No knee pain or fibular head tenderness. Nohip pain or tenderness with range of motion. No other gross deformities. No head trauma or neck pain, neck stiffness or focal numbness or weakness. No trauma or injury reported. In addition, patient appears to have some paranoia and flight of ideas during my interview and exam, and is mixing multiple topics while trying to give a history. She does reportedly use marijuana and there is a possible history of opiate abuse in the past. She denies IVDU. There have been no reported fevers or recent illness. She denies any SI or HI. She denies any attempt to hurt herself. She does report that she ishearing voices, but would not specify what they are saying. No other acute complaints. Ivy reported there is a restraining order and check the court documents . She stated I am but it is complicated cause which and are you talking . She reported I everytime I go to sleep . She reported sleep is no neccessary for me . She reported I cannot be in a high population area . Tried to call [facility], [facility], [facility] crisis and [facility] crisis who all stated she is unknown to them. Ivy was seen for a mental status update. The nurse stated she has been calm and cooperative. Ivy was unable to answer questions, very disorganized and saying word salad. She reported they keep flicking my bones . She stated I learn all language . She stated I don't hear voices, it isall spiritual and they make peace . Ivy's boyfriend stated he met her on tender in 10/06 and she was going through a divorce . He stated she was off her medications and she became very disorganized. 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 Her boyfriend stated she is from [place] and was living in [place] with her and daughter until there divorce. He reported she went missing and he was looking for her for 2 days. He stated she had bought a plane ticket to [place]. He reported they noticed she was decompensated and sent her to [facility] for treatment. Her boyfriend stated when she got out she was still very decompensated. He reported she could not care for herself she was so decompensated. He stated he had to feed her. Her boyfriend stated she got aggressive with him and wasspiting at him. He reported he had to call the police and they sent her to the ER. Collaterals, contact information, and engagement level: Therapist: None Psychiatrist: None PCP: Unknown Family: None Other: Boyfriend Luis [phone] Mental Status Speech: WNL Eye Contact: Avoidant Motor Activity: WNL Mood: Anxious and Depressed Affect: Flat Sleep: Poor Appetite: Fair Memory: Severe Impairment Attention / Concentration: Sever Impairment Behavior: Cooperative, Paranoid, and Bizarre Appearance: Hallucinations: Auditory Delusions: Paranoid and Scientologist Thought Content: Disorganized SI: Denied HI: Denied Medications: Scheduled Meds: nicotine, 1 patch, transdermal, Daily Continuous Infusions: PRN Meds: PRN medications: ibuprofen Risk Assessment: Self-Harm: None Suicidal Behavior: None Homicidal Behavior: None Physical Assault: None Physical Aggression: None Property Damage: None Verbal Aggression: None Family history of suicide: None reported Protective Factors: Has a boyfriend who is involved. Risk Factors: Very decompensated Suicide Risk: Based on patient's history and current presentation, their level of risk for intentional lethal harm is considered Low Interventions: Used brief crisis intervention Response to interventions: Unable to engage shira garibay. DSM-5TR Diagnosis: F 29 Unspecified Schizophrenia Spectrum and other psychotic D/O Plan: Ivy is at low risk for suicidal or homicidal plan and intent however due to her level of psychosis and inability to care for herself places her at high risk in the community. She would benefit from inpatient level of care for safety, stabilization and medication evaluation. She is on a [id number] involuntary. Recommendations were discussed with requesting provider. It was a pleasure to assist Ivy Lira here at [facility]. This report is written and finalized by: Rubia Roman MS Behavioral Health Specialist [facility] (Tel): [phone] / : [phone] * Kaelyn English [facility] - 12/21/2024 4:22 PM EST Images from the original note were not included. Behavioral Health Services - Mental Status Update Important times Time assessment started: 12:20 PM Time of disposition: 12:35 PM Location: [facility] Room J Consulted case with: Yessenia Spring LCSW Reason for Consultation / Presenting Problem: Ivy Lira is being seen today for a 24 hour re-evaluation due to their state wide bed search being exhausted. During Ivy 24- hour mental status Ivy reports feeling sick and not sick with a low grade fever she reported being 2 1/2 months . Sge made eye contact she was engaging her speech was tangential and bizarre. She oriented X [address], time or situation. She reported that her whole family and friends are all as well as herself they all committed suicide and for some reason she keeps coming back from [facility]. Collaterals, contact information, and engagement level: Therapist: None reported Psychiatrist: None reported PCP: None reported Family: She reported her whole family is they committed suicide Mental Status Speech: Slowed Eye Contact: Avoidant Motor Activity: Restless Mood: Anxious and Depressed Affect: Flat Sleep: Fair Appetite: Poor Memory: Severe Impairment Attention / Concentration: Sever Impairment Behavior: Cooperative, Paranoid, and Bizarre Hallucinations: Auditory Delusions: Paranoid and Scientologist Thought Content: Disorganized SI: Presence and with no plan HI: Denied Thought Process: Flight of Ideas and Tangential Orientation Impairment: Place, Time, and Situation Insight: Poor Judgment: Poor Impulse Control: Poor Medications: Scheduled Meds: Continuous Infusions: PRN Meds: PRN medications: ibuprofen Risk Assessment: Self-Harm: She reported that she self -harms when she is hungry Suicidal Behavior: She reported that she reported that she committed suicide and came back to life Homicidal Behavior: None Physical Assault: None Physical Aggression: None Property Damage: None Verbal Aggression: None Family history of suicide: None was reported Protective Factors: -Help seeking Risk Factors: -No current providers -Has no mental health Hx at [facility] or [facility] / [facility] -Tangential / Bizarre speech -Disorganize -Paranoid Suicide Risk: Based on patient's history and current presentation, their level of risk for intentional lethal harm is considered Low Interventions: -Validating -Active listening Response to interventions: Ivy had some engagement but speech was bizarre and tangential. DSM-5TR Diagnosis: F 29 Unspecified Schizophrenia Spectrum and other psychotic D/O Plan: Based on the above information and Ivy's presentation she is at low risk for suicidal or homicidal plan and intent however due to her level of psychosis and inability to care for herself places her at high risk in the community. She would benefit from inpatient level of care for safety, stabilization and medication evaluation. She is on a section 12 involuntary. Side note: On 12/20/2024 we were notified that Ivy Lira 1995. Has a warrant for her arrest. This clinician told [place] Police office [place] that Ivy cannot be discharge due to being on a section 12 / medical psych care. When [facility] is place IPLOC unit please call [facility] Police department none- emergency line at [phone] and let them know where she is going forIPLOC. If Ivy is clear and is ready to discharge out to the community, please notify [facility] Police department none- emergency line at [phone] and they will come pick her up. Recommendations were discussed with requesting provider. It was a pleasure to assist Ivy Lira here at [facility]. This report is written and finalized by: KAMERON Mejia Behavioral Health Specialist [facility] (Tel): [phone] / : [phone] * KAMERON Mejia - 12/20/2024 8:18 PM EST On 12/20/2024 we were notified that Ivy Lira 1995. Has a warrant for her arrest. Thisclinician told [place] Police office [place] that Ivy cannot be discharge due to being on a section 12 / medical psych care. When [facility] is place IPLOC unit please call [place], Policedepartment none- emergency line at [phone] and let them know where she is going for IPLOC. If Ivy is clear and is ready to discharge out to the community, please notify [place], Police department none- emergency line at [phone] and they will come pick her up. Thank you * Yessenia Spring LCSW - 12/20/2024 1:18 PM EST BEHAVIORAL HEALTH SERVICES - MSU/Intervention Session Important times Time assessment started: 08:30 Time of disposition: 10:14 Consulted case with: RADHA Harrison, [facility] -*PURPOSE OF CONSULT/PRESENTING PROBLEM*- Patient Ivy Lira is being seen by Behavioral Health Services for 24- hour re-evaluation due to their statewide bed search being exhausted. During initial contact patient stated, ???if you don't have any coffee, you can fuck off?? , however she became agreeable to speaking after some timewas given. Patient denies suicidal ideation but expresses clear hostility toward nursing staff by accusing them of stealing food or coffee from her as well as attempting to hypnotize her. When asked about homicidal ideation she states, ???only when people aggravate me or pretend to be me?? and patient reports that people often attempt to pretend to be her. Patient reports having no support or outpatient services despite pursuing them, and she states services have never followed through due to providers trying to drug her. She expresses interest in being connected with psychiatric supports and she did mention she is ???trying to be sober?? despite viewing her condition as ???not addition, its coping mechanisms and regeneration?? -*COLLATERRALS, CONTACT INFORMATION, AND ENGAGEMENT LEVEL*- None, states ???nobody can trust nobody?? . -*MENTAL STATUS EXAM*- Speech: WNL Eye Contact: Avoidant Motor Activity: WNL Mood: Anxious, Irritable, Affect: Labile Sleep: WNL Appetite: Good Memory: WNL Attention/ Concentration: WNL Behavior: Agitated, Paranoid, Bizarre Hallucinations: None Delusions: Persecutory, Scientologist Thought Content: Ideas of reference SI: denied HI: denied, some presence of hostility toward nursing staff Thought Process: Flight of Ideas, Tangential Orientation Impairment: None Insight: Poor; Comments: Patient expresses poor insight evident by persecutory delusions that staffor past providers are intending to harm her. Patient also stated she is ???trying to be sober?? but her struggles are ???not addition, its coping mechanisms and regeneration?? Judgment: Fair; Comments: Patient displays some emotional regulation despite present delusions, also is willing to connect with supports -*RISK ASSESSMENT*- Self-Harm: Past - reports she often ???dies and reincarnates?? Suicidality: Past Homicidally: Current hostility toward nursing staff Physical Assault: None Physical Aggression: None Property Damage: None Verbal Aggression: None Family History of suicide: None, reported Protective factor: Willingness to engage in support Risk factors: Poor insight, need for diagnostic clarity, current HI presentation Suicide risk: Based on patient's history and current presentation, level of risk for intentional lethal harm is considered: High -*Risk Assessment Summary and Safety Plan*- SAFETY PLAN COMPLETED? No -*INTERVENTIONS*- Risk Assessment Empathic and Active Listening Motivational Interviewing Brief Counseling -*RESPONSE TO INTERVENTIONS*- Patient was initially resistant in engaging but later responded positively to interventions. DSM-5 DIAGNOSIS: F29 Unspecified Schizophrenia Spectrum and other Psychotic Disorder F43.10 Posttraumatic Stress Disorder -*PLAN*- Patient Ivy Lira is being seen by Behavioral Health Services for 24- hour re-evaluation due to their statewide bed search being exhausted. While current SI/HI was denied, there appears to be clear hostility toward staff based on persecutory delusions that staff are stealing or trying to hypnotize her. The addition of self-reported failures in connecting with outpatient services due to similar circumstances and tangential discussion of dying and reincarnation supports the need for inpatient hospitalization. Diagnostic clarity is also needed due to her own report of being having PTSDand ???being told?? she has Schizophrenia. Patient expressed desire to connect with supports and was agreeable to inpatient level of care. Given the above information patient would benefit from an involuntary inpatient psychiatric admission for safety and containment, mood stabilization, psychiatric medication evaluation, diagnostic clarification, an opportunity to engage in a therapeutic treatment through individual and group counseling to develop adaptive coping/symptoms management skills and assistance in accessing community resources at discharge. This clinician consulted with RADHA Harrison, [facility] It is a pleasure to assist in the care of Ivy Lira here at [facility]. This report is written and finalized by: RADHA Mckay Inter Supervised by RADHA Harrison, [facility] Behavioral Health Specialist [facility] (tel): , (fax): * Rubia Roman - 12/19/2024 4:50 PM ESTAssociated Order(s): IP CONSULT TO [employer]IG[employer]TE MAKING MACHINE C[employer]ER Images from the original note were not included. Behavioral Health Services - Crisis Assessment Important times Time of arrival: 12/19/24 11:48 am Time of referral: 12/19/24 12:10 pm Time of readiness: 12/19/24 4:15 pm Time assessment started: 12/19/24 4:30 pm Time of disposition: 12/19/24 5:30 pm Location: [facility] Emergency Department Consulted case with: SINCERE Harrison Reason for Consultation / Presenting Problem: Ivy Lira is being seen today for a consultive service at the request of Alessio Lyon DO to assess risk and identify appropriate level of care. Ivy is a 29-year-old female reportedly presents to the emergency department from the police station complaining of bruising and pain in her right ankle and left foot and tailbone area after she reportedly had a fall about a month ago. She has been walking on the injured left extremity. Is some noted bruising and swelling to the left foot and ankle. No knee pain or fibular head tenderness. No hip pain or tenderness with range of motion. No other gross deformities. No head trauma or neckpain, neck stiffness or focal numbness or weakness. No trauma or injury reported. In addition, patient appears to have some paranoia and flight of ideas during my interview and exam, and is mixing multiple topics while trying to give a history. She does reportedly use marijuana and there is a possible history of opiate abuse in the past. She denies IVDU. There have been no reported fevers or recent illness. She denies any SI or HI. She denies any attempt to hurt herself. She does report that she is hearing voices, but would not specify what they are saying. No other acute complaints. Ivy reported there is a restraining order and check the court documents . She stated I am but it is complicated cause which and are you talking . She reported I everytime I go to sleep . She reported sleep is no neccessary for me . She reported I cannot be in a high population area . Tried to call [facility], [facility], [facility] crisis and [facility] crisis who all stated she is unknown to them. History of Present Illness: Ivy is a 29 y.o. female with Chief Complaint Patient presents with Leg Pain Social/Educational History: Guardian - if Yes, provide contact information: self [place] Status: N/A State Agency Involvement: None reported [place]'s Order: None reported Marital Status: which or are you talking about . Alternative Placement Details: N/A Living Situation for patient: with roommates Household Members/Age: unknown Friendships/Family/Social Peer Support/Relationships: stated she did not want to talk about that. Highest level of education: graduated high school. Comments (Include Learning Needs): None reported Occupation: None reported Employment/Extracurricular Activities/Hobbies: None reported Limitations of Daily Activities: None reported Strengths/Supports: Did not report any supports. Collaterals, contact information, and engagement level: Therapist: None reported Psychiatrist: None reported PCP: None reported Family: Stated no one Other: Tried to call [facility], [facility], [facility] crisis and [facility] crisis who all stated she is unknown to them. Mental Status Speech: WNL Eye Contact: Avoidant Motor Activity: WNL Mood: Anxious and Depressed Affect: Flat Sleep: Poor Appetite: Fair Memory: Severe Impairment Attention / Concentration: Sever Impairment Behavior: Cooperative, Paranoid, and Bizarre Appearance: Hallucinations: Auditory Delusions: Paranoid and Scientologist Thought Content: Disorganized SI: Denied HI: Denied Thought Process: Flight of Ideas and Tangential Orientation Impairment: Person Insight: Poor Judgment: Poor Impulse Control: Poor Substance Use History (Including family history): Ivy stated she drinks alcohol socially. Marijuana daily. Last use yesterday Utox Results: TOX positive for cannabis Substance Use Treatment History: Ivy denies any history of substance abuse treatment Mental Health Treatment History: Outpatient Mental Health Treatment: None reported Previous or Current Psychological Diagnosis: None reported Prior Psychiatric Hospitalizations/Residential Treatment Facilities: Ivy is unknown to [facility]. She reported a history in her teens and as an adult of cutting and all of the above . She stated I have been inpatient hospitals a lot and the last time was a month ago . Other Comments Regarding Mental Health Treatment History: None reported Mental Health Concerns in Family: Ivy is to decompensated to give information. Trauma History: Ivy stated she did not want to talk about it. Medications: Scheduled Meds: Continuous Infusions: PRN Meds: Risk Assessment: Self-Harm: None Suicidal Behavior: None Homicidal Behavior: None Physical Assault: None Physical Aggression: None Property Damage: None Verbal Aggression: None Family history of suicide: Unknown Protective Factors: Stated she has housing Able to access her need for help Risk Factors: Disorganized and paranoid and unable to care for herself. Suicide Risk: Based on patient's history and current presentation, their level of risk for intentional lethal harm is considered Low Interventions: Used brief crisis intervention. Response to interventions: Ivy was unable to engage in the conversation. DSM-5TR Diagnosis: F 29 Unspecified Schizophrenia Spectrum and other psychotic D/O Plan: Ivy is at low risk for suicidal or homicidal plan and intent however due to her level of psychosis and inability to care for herself places her at high risk in the community. She would benefit from inpatient level of care for safety, stabilization and medication evaluation. She is on a [id number] involuntary. Recommendations were discussed with requesting provider. It was a pleasure to assist Ivy Lira here at [facility]. This report is written and finalized by: Rubia Roman MS Behavioral Health Specialist [facility] (Tel): [phone] / : [phone] documented in this encounter Plan of Treatment Not on file documented as of this encounter Procedures Procedure Name Priority Date/Time Associated Diagnosis Comments POC , URINE DIAGNOSTIC STAT 12/19/2024 2:54 PM EST DRUG ABUSE SCREEN 8A PANEL, URINE STAT 12/19/2024 2:44 PM EST BUPRENORPHINE SCREEN, URINE STAT 12/19/2024 2:44 PM EST METHADONE SCREEN, URINE STAT 12/19/2024 2:44 PM EST PHENCYCLIDINE, URINE STAT 12/19/2024 2:44 PM EST XR FOOT 3+ VIEWS LEFT STAT 12/19/2024 1:32 PM EST XR ANKLE 3+ VIEWS LEFT STAT 1:32 PM EST documented in this encounter Results * POC , urine manually resulted (12/19/2024 2:54 PM EST) HCG, Ur POC Negative Negative POC hCG Int QC Pass? Yes Yes Urine Urine specimen obtained by clean catch procedure / Unknown 12/19/2024 2:54 PM EST us Alessio Lyon DO POINT OF CARE TEST ENTER/EDIT ORDERABLES Final Result * Methadone, urine (12/19/2024 2:44 PM EST) Methadone Screen, Urine Negative Negative LAB CHEMISTRY METHOD 12/19/2024 3:38 PM EST [facility] Comment: Assay cutoff 300 ng/mL Semi-quantitative assay for screening purposes only. Unconfirmed screening result should not be used for non-medical purposes. *ALTERNATE METHOD CONFIRMATION DONE UPON REQUEST ONLY* Urine Urine specimen obtained by clean catch procedure / Unknown Non-blood Collection / Unknown 12/19/2024 2:44 PM EST 12/19/2024 3:05 PM EST us Alessio Lyon DO LAB URINE ORDERABLES Final Res ult [facility] [address] [place] [address], [place] [phone] * Phencyclidine, urine (12/19/2024 2:44 PM EST) PCP Scrn, Ur Negative Negative LAB CHEMISTRY METHOD 12/19/2024 3:44 PM EST [facility] Comment: Assay cutoff 25 ng/mL Semi-quantitative assay for screening purposes only. Unconfirmed screening result should not be used for non-medical purposes. *ALTERNATE METHOD CONFIRMATION DONE UPON REQUEST ONLY* Urine Urine specimen obtained by clean catch procedure / Unknown Non-blood Collection / Unknown 12/19/2024 2:44 PM EST 12/19/2024 3:05 PM EST Alessio Lyon LAB URINE ORDERABLES Final Res ult Performing Organization Address [facility]/ZIP Co de Phone Number [facility] [address] [place] [address], [place] [phone] * Buprenorphine screen, urine (12/19/2024 2:44 PM EST) Buprenorphine Screen Urine Negative Negative LAB CHEMISTRY METHOD 12/19/2024 3:38 PM EST [facility] Urine Urine specimen obtained by clean catch procedure / Unknown Non-blood Collection / Unknown 12/19/2024 2:44 PM EST 12/19/2024 3:05 PM EST Narrative [facility] - 12/19/2024 3:38 PM EST Assay cutoff 5 ng/mL Semi-quantitative assay for screening purposes only. Unconfirmed screening result should not be used for non-medical purposes. *ALTERNATE METHOD CONFIRMATION DONE UPON REQUEST ONLY* Alessio Lyon DO LAB URINE ORDERABLES Final Res ult Performing Organization Address [facility]/ZIP Co de Phone Number [facility] [address] [place] [address], [place] [phone] * (ABNORMAL) Drug abuse screen 8a panel, urine (12/19/2024 2:44 PM EST) Amphetamine Screen, Ur Negative Negative LAB CHEMISTRY METHOD 3:38 PM EST [facility] Comment:Certain OTC medicati ons containing ephedrine, phenylephrine, pseudoephedrine and phenylpropanolamine can cause false positive results. Barbiturate Screen, Ur Negative Negative LAB CHEMISTRY METHOD 3:38 PM EST [facility] Benzodiazepine Screen, Ur Negative Negative LAB CHEMISTRY METHOD 5 3:38 PM EST [facility] Cocaine Screen, Ur Negative Negative LAB CHEMISTRY METHOD 5 3:38 PM EST [facility] Opiate Screen, Ur Negative Negative LAB CHEMISTRY METHOD 5 3:38 PM [facility] Cannabinoid (THC) Screen, Ur Positive(A ) Negative LAB CHEMISTRY METHOD 5 3:38 PM EST [facility] Comment:Specimens from patie nts taking pantoprazole sodium (Protonix) have been shown to produce false positive results. Oxycodone Screen, Ur Negative Negative LAB CHEMISTRY METHOD 5 3:38 PM EST [facility] Fentanyl, Ur Negative Negative LAB CHEMISTRY METHOD 5 3:38 PM [facility] Urine Urine specimen obtained by clean catch procedure / Unknown Non-blood Collection / Unknown 12/19/2024 2:44 PM EST 12/19/2024 3:05 PM EST Narrative [facility] - 12/19/2024 3:38 PM EST Assay cutoffs: Amphetamines ? 1000 ng/mL Barbiturates ?200 ng/mL Benzodiazepines ?? 200 ng/mL Cocaine ? 300 ng/mL Fentanyl ?1 ng/mL Opiates ? 300 ng/mL Oxycodone ? 100 ng/mL THC ?50 ng/mL Semi-quantitative assay for screening purposes only. Unconfirmed screening result should not be used for non-medical purposes. *ALTERNATE METHOD CONFIRMATION DONE UPON REQUEST ONLY* us Alessio Lyon DO LAB URINE ORDERABLES Final Res ult [facility] [address] [place] [address], * XR Foot 3+ Views Left (12/19/2024 [...] Signed Date: 12/19/2024 13:58 ET Workstation ID: [id number] Transcribed By: Self Edit Transcribed Date: 12/19/2024 13:57 ET Narrative 12/19/2024 1:58 PM EST XR FOOT 3+ VIEWS LEFT INDICATION: trauma, pain TECHNIQUE: XR FOOT 3+ VIEWS LEFT COMPARISON: No priors available. Procedure Note Nian Luis MD - 12/19/2024 XR FOOT 3+ [...] Signed Date: 12/19/2024 13:58 ET Workstation ID: [id number] Transcribed By: Self Edit Transcribed Date: 12/19/2024 13:57 ET Alessio Lyon DO IMG XR PROCEDURES [...] Date: 12/19/2024 13:55 ET Assigned Physician: Nina uLis Reviewed and Electronically Signed By: Nina Luis Signed Date: 12/19/2024 13:57 ET Workstation ID: [id number] Transcribed By: Self Edit Transcribed Date: 12/19/2024 [...] Signed Date: 12/19/2024 13:57 ET Workstation ID: [id number] Transcribed By: Self Edit Transcribed Date: 12/19/2024 13:55 ET Alessio Lyon DO IMG XR PROCEDURES Final Result documented in this encounter 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 psychosis documented in this encounter Administered Medications Active Administered Medications - up to 3 most recent administrations Medication Order MAR Action Action Date Dose Rate Site ibuprofen (ADVIL,MOTRIN) tablet 600 mg 600 mg, oral, Every 6 hours PRN, moderate pain, Starting on Mon12/20/24 at 1104, Administer with food or milk to decrease GI upset Given 12/22/2024 7:34 PM EST 600 mg Given 12/20/2024 11:33 AM EST 600 mg nicotine (NICODERM CQ) 14 mg/24 hr patch 1 patch 1 patch, transdermal, Administer over 24 Hours, Daily, First dose on 12/21/24 at 1905, For 7 days Patch Applied 12/24/2024 8:04 AM EST 1 patch Left Arm Patch Applied 12/23/2024 8:53 AM EST 1 patch Right Arm Patch Applied 12/22/2024 9:52 AM EST 1 patch Left Arm OLANZapine (ZyPREXA) tablet 5 mg 5 mg, oral, 2 times daily PRN, agitation or anxiety, Starting on 12/22/24 at 1420 Inactive Administered Medications - up to 3 most recent administrations Medication Order MAR Action Action Date Dose Rate Site haloperidol lactate (HALDOL) injection 5 mg 5 mg, intramuscular, Once, On 12/22/24 at 1635, For 1 dose, May be ordered via either intramuscular or intravenous route. If ordered IV, maximum of 5 mg/minute. Given 12/22/2024 4:50 PM EST 5 mg Right Anterior Thigh LORazepam (ATIVAN) injection 2 mg 2 mg, intramuscular, Once, On 12/22/24 at 1635, For 1 dose, Prior to IV use, lorazepam injection should be DILUTED with an equal volume of compatible solution; Rate of administration should NOT exceed 2 mg/min. Given 12/22/2024 4:50 PM EST 2 mg Right Anterior Thigh documented in this encounter Historical Medications * This list may reflect changes made after this encounter. ARIPiprazole (ABILIFY) 2 mg tablet Take 1 tablet (2 mg total) by mouth at bedtime. FLUoxetine (PROzac) 10 mg capsule Take 3 capsules (30 mg total) by mouth 1 (one) time each day. ibuprofen (ADVIL,MOTRIN) 200 mg tablet Take 1 tablet (200 mg total) by mouth every 6 (six) hours if needed for mild pain. acetaminophen (TYLENOL) 500 mg tablet Take 1 tablet (500 mg total) by mouth every 6 (six) hours if needed for mild pain. prazosin (MINIPRESS) 1 mg capsule Take 1 capsule (1 mg total) by mouth at bedtime. LORazepam (ATIVAN) 0.5 mg tablet Take 1 tablet (0.5 mg total) by mouth every 6 (six) hours if needed for anxiety. Max Daily Amount: 2 mg hydrOXYzine HCL (ATARAX) 50 mg tablet Take 1 tablet (50 mg total) by mouth every 4 (four) hours if needed for anxiety. traZODone (DESYREL) 50 mg tabletIndications :insomnia associated with depression Take 1 tablet (50 mg total) by mouth at bedtime. melatonin 3 mg tablet 1 tablet (3 mg total). added in this encounter Active and Recently Administered Medications Times are shown in EST. Scheduled Medication Order 12/22/2024 12/23/2024 12/24/2024 haloperidol lactate (HALDOL) injection 5 mg (COMPLETED) 5 mg, intramuscular, Once, On 12/22/24 at 1635, For 1 dose, May be ordered via either intramuscular or intravenous route. If ordered IV, maximum of 5 mg/minute. 1649 (Given - Provider: Latasha Bryan RN) LORazepam (ATIVAN) injection 2 mg (COMPLETED) 2 mg, intramuscular, Once, On 12/22/24 at 1635, For 1 dose, Prior to IV use, lorazepam injection should be DILUTED with an equal volume of compatible solution; Rate of administration should NOT exceed 2 mg/min. 1650 (Given - Provider: Latasha Bryan RN) nicotine (NICODERM CQ) 14 mg/24 hr patch 1 patch 1 patch, transdermal, Administer over 24 Hours, Daily, First dose on 12/21/24 at 1905, For 7 days 0952 (Patch Applied - Provider: Mckenzie Berman RN)0953 (Patch Removed - Provider: Mckenzie Berman RN) 0853 (Patch Applied - Provider: Beena Hardin, CLAUDINE) 0804 (Patch Applied - Provider: Beena Hardin, CLAUDINE) PRN Medication Order 12/22/2024 12/23/2024 12/24/2024 ibuprofen (ADVIL,MOTRIN) tablet 600 mg 600 mg, oral, Every 6 hours PRN, moderate pain, Starting on Mon12/20/24 at 1104, Administer with food or milk to decrease GI upset 1933 (Given - Provider: Latasha Stokowski, RN) OLANZapine (ZyPREXA) tablet 5 mg 5 mg, oral, 2 times daily PRN, agitation or anxiety, Starting on 12/22/24 at 1420 documented in this encounter Orders Medications Ordered That Agustín ht Not Have Been Administered Count Last Ordered Date First Ordered Date LORazepam (ATIVAN) tablet 1 mg 1 12/22/2024 OLANZapine (ZyPREXA) tablet 5 mg 1 12/22/19 General Supply Count Last Ordered Date First Or dered Date GENERAL SUPPLY 2 12/22/2024 12/19/2024 Diet Count Last Ordered Date First Orde red Date ADULT DIET 1 12/23/2024 Nursing Count Last Ordered Date First Orde red Date VITAL SIGNS 1 12/19/2024 Consult Count Last Ordered Date First Orde red Date IP CONSULT TO CIGARETTE MAKING MACHINE CATCHER 1 12/19/2024 Restraints Count Last Ordered Date First Orde red Date RESTRAINTS VIOLENT OR SELF-D ESTRUCTIVE ADULT (AGE 18 AND OLDER) 1 12/22/2024 Precaution Count Last Ordered Date First Orde red Date SUICIDE PRECAUTIONS 1 12/19/2024 Privilege Level Count Last Ordered Date First O rdered Date PATIENT NOC ENGINEER 1 12/23/2024 documented in this encounter Care Teams Pick And Shovel Man Relationship Specialty Start Date End Date Physician, No Pcp PCP - General 12/19/24 documented as of this encounter
--- NOTE | 2024-12-24 14:46 | PC.NURSE ---
Ivy declined the flu vaccine at this time.
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
--- NOTE | 2024-12-24 17:04 | PC.ADMIT ---
Addendum entered by Steph Gonzalez RN 12/24/24 18:12: When asked about medications she states I don't take medications because they don't work for me. I will take them while I am here but they won't do anything. Pharmacy was called for med rec and only prescribed Melatonin and Claritin. List from [facility] has multiple other medications which were placed in the med rec per Abundio Siddiqui MD request. PT consult placed for ankle due to cane use in community. Hospitalist requested Orthopedic consult and Xray be ordered for ankle as well, Abundio Siddiqui MD made aware. Original Note: Ivy was admitted to from [facility] on 12/24/24 on a CV for treatment of Schizophrenia. She originally presented to [facility] for pain in her left ankle accompanied by swelling and bruising. Upon assessment at [facility], she was found to be delusional, hyperverbal and paranoid. During admission assessment, Ivy is linear but making some delusional statements. When asked if she was hearing voices or seeing things she reports some people would call it hallucinations but they are just spiritual happenings. I just let the [place] doctors call me Schizophrenic but it really is all just spiritual. In regards to her ankle she reports I broke it a few months ago and I have to keep breaking it and re-breaking it so that it heals properly. When asked about any medical issues or concerns she reports I have a history of seizures, in fact I had one this morning but they are only a couple of seconds and they resolve on their own. I also have heart attacks and brain aneurysms, in fact I just had one now. I just have to stretch and it fixes itself. Her mood is anxious and her affect is congruent with her mood. She reports using marijuanna that is laced with everything including cocaine and alcohol. It's not really those things just a derivative. Her tox screen was positive for marijuanna. She reports having difficulty staying asleep at night. She denies weight gain/loss. She reports that her pain in her ankle comes and goes but does not currently hurt. She denies SI/HI. Her goal of admission is to let her ankle heal. She is a high fall risk due to presumed seizure history. Her skin check was completed by chava RN and Debi Gilbert RN and revealed bruising to the lateral and medial aspects of her left foot as well as her 2nd to 4th toes with mild edema, no erythema noted. Extremity is warm and dry. She was placed on 15 minute checks.
[2024-12-24 20:24] VITALS: BP 96/48; PULSE 93; RESP 16; TEMP 36.7; O2SAT 100
[2024-12-25] MEDS: Nicotine Polacrilex 2 MG GUM 4 MG BUCCAL ×2 (06:45→21:03)
[2024-12-25 07:31] VITALS: BP 126/79; PULSE 102; RESP 16; TEMP 36.3; O2SAT 100
[2024-12-25] MEDS: Nicotine 21 MG PATCH.TD24 TRANSDERMA (08:35)
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
[2024-12-25 09:03] LABS: Estimated Average Glucose 88 mg/dL; Hemoglobin A1C 97.3308 umol/L; Hemoglobin A1c % 4.7 % (<6.0); Total Hemoglobin (HGBA1C) 3522.1406 umol/L
[2024-12-25 09:10] LABS: Cholesterol 119 mg/dL (<200); HDL Cholesterol 38 mg/dL (>40); LDL Cholesterol Calculated 60 mg/dL (<100); Triglycerides 106 mg/dL (<150)
[2024-12-25 09:27] LABS: Free T4 (Free Thyroxine) 0.84 ng/dL (0.71-1.85); Thyroid Stimulating Hormone 2.11 uIU/mL (0.32-4.0)
[2024-12-25 09:40] LABS: Folate 8.6 ng/mL (> or = 4.0); Vitamin B12 292 pg/mL (200-900)
[2024-12-25] MEDS: Loratadine 10 MG TABLET 5 MG PO (14:51)
[2024-12-25 20:00] VITALS: PULSE 107; RESP 16; TEMP 36.6; O2SAT 100
[2024-12-25] MEDS: ARIPiprazole 5 MG TABLET PO (21:03)
[2024-12-25] MEDS: Throat Lozenge, Medicated LOZENGE 1 LOZENGE MUCOUS MEM (22:46)
[2024-12-26 07:00] VITALS: BMI 32.1
[2024-12-26 07:45] VITALS: BP 119/55; PULSE 75; RESP 16; TEMP 36.6; O2SAT 99
[2024-12-26] MEDS: Nicotine 21 MG PATCH.TD24 TRANSDERMA (09:02)
[2024-12-26] MEDS: Acetaminophen 325 MG TABLET 650 MG PO (09:12)
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
[2024-12-26 20:00] VITALS: BP 130/74; PULSE 85; RESP 16; TEMP 36.3; O2SAT 100
[2024-12-27 07:15] VITALS: BP 120/70; PULSE 81; RESP 16; TEMP 36.6; O2SAT 100
[2024-12-27] MEDS: Nicotine 21 MG PATCH.TD24 TRANSDERMA (08:55)
[2024-12-27] MEDS: Ibuprofen 600 MG TABLET PO (09:06)
== END 2024-12-27 13:00 | disposition home or self-care (01) | DRG 751 ==
PROVIDERS: Admitting Provider Psychiatry & Neurology Psychiatry; Visit Provider Psychiatry & Neurology Psychiatry
DX: F29 Unspecified psychosis not due to a substance or known physiological condition (principal); F17.210 Nicotine dependence, cigarettes, uncomplicated; S82.62XA Displaced fracture of lateral malleolus of left fibula, initial encounter for closed fracture; W19.XXXA Unspecified fall, initial encounter; Z71.6 Tobacco abuse counseling; Z79.899 Other long term (current) drug therapy
CPT/HCPCS: 36415; 73610; 73630; 80061; 82607; 82746; 83036; 84439; 84443

== ENCOUNTER → 2024-12-24 13:10 | Outpatient (BNV) | payer OTHER, SELFPAY | PROVIDERS: Admitting Provider Psychiatry & Neurology Psychiatry; Visit Provider Psychiatry & Neurology Psychiatry | DX: F29 Unspecified psychosis not due to a substance or known physiological condition (principal) | CPT/HCPCS: 99233 ==

== ENCOUNTER → 2024-12-24 13:10 | Outpatient (BNV) | payer MEDICAID, SELFPAY | PROVIDERS: Admitting Provider Psychiatry & Neurology Psychiatry; Visit Provider Internal Medicine | DX: M79.672 Pain in left foot (principal) | CPT/HCPCS: 99221 ==

== ENCOUNTER → 2024-12-24 13:10 | Outpatient (BNV) | payer MEDICAID, SELFPAY | PROVIDERS: Admitting Provider Psychiatry & Neurology Psychiatry | DX: S82.62XA Displaced fracture of lateral malleolus of left fibula, initial encounter for closed fracture (principal) | CPT/HCPCS: 99222 ==